=== PATIENT | female | born 1960 | race Two or more races ===

== ENCOUNTER → 2016-05-31 | Day surgery (SDC) | payer BC ==
[~2016-05-31] VITALS: Ht 162.6 cm; Wt 54.4 kg
[2016-05-31] VITALS (7 sets, daily range): BP systolic 107–119; BP diastolic 57–71
[~2016-05-31] MED LIST: NS Irrig 1000ml ONE; Propofol 10mg/ml 20ml IV ONE; [UNRECOGNIZED DRUG - REMARK] PO
--- NOTE | 2016-05-31 09:25 | Pre-Procedure Note/Attestation ---
Pre-Procedure Note/Attestation Complete Prior to Procedure Planned Procedure: not applicable Procedure Narrative: colonoscopy Indications for Procedure Pre-Operative Diagnosis: screening Attestation I attest that I discussed the nature of the procedure; its benefits; risks and complications; and alternatives (and the risks and benefits of such alternatives ), prior to the procedure, with the patient (or the patient's legal insurance representative). I attest that, if there was a reasonable possibility of needing a blood transfusion, the patient (or the patient's legal insurance representative) was given the [facility] standardized written summary, pursuant to the Navi Mullin Blood Safety Act ([place] Health and Safety Code # 1645, as amended). I attest that I re-evaluated the patient just prior to the surgery and that there has been no change in the patient's H&P, except as documented below: NAVA ESPANA May 31, 2016 09:25
--- NOTE | 2016-05-31 09:27 | Short Stay Surgery H&P ---
History of Present Illness History of Present Illness Chief Complaint screening HPI Naomy Nichole is a 55 year old female who was admitted on for Colon Screening Patient History Allergies: Coded Allergies: No Known Allergies (Unverified , 05/31/16) PAST MEDICAL HISTORY: (1) Mitral valve disorder Past Surgeries: Social History: Medication History Scheduled [Hormone Pill Otc], 1 TAB-CAP PO DAILY, (Reported) Review of Systems Cardiovascular: Reports: no symptoms Respiratory: Reports: no symptoms Skeletal: Reports: no symptoms Gastrointestinal: Reports: gastro esophageal reflux disease Genitourinary: Reports: no symptoms Neurologic: Reports: no symptoms Endocrine: Reports: no symptoms Hematologic: Reports: no symptoms Physical Exam Vital Signs Last Vital Signs Date Time Temp Pulse Resp B/P Pulse Ox O2 Delivery O2 Flow Rate FiO2 05/31/16 08:40 98.5 65 18 112/63 100 Room Air Skin: normal HENT: normal Heart: normal Lungs: normal Abdomen: normal Extremities: normal Plan Plan of Care colonoscopy Final Diagnosis: Attestation Are the patient's medical conditions optimized for surgery? Attestation Response: yes NAVA ESPANA May 31, 2016 09:27
--- NOTE | 2016-05-31 09:49 | Anethesia Preoperative Eval ---
Anesthesia Pre-op PMH/ROS General Date of Evaluation: May 31, 2016 Time of Evaluation: 09:23 Anesthesiologist: mike ASA Score: ASA 2 Mallampati Score Class I : Soft palate, uvula, fauces, pillars visible Class II: Soft palate, uvula, fauces visible Class III: Soft palate, base of uvula visible Class IV: Only hard plate visible Mallampati Classification: Class II Surgeon: ced Diagnosis: screening Surgical Procedure: colonoscopy Anesthesia History: none Allergies: Coded Allergies: No Known Allergies (Unverified , 05/31/16) Anesthesia Pre-op Phys. Exam Physician Exam Last Vital Signs Date Time Temp Pulse Resp B/P Pulse Ox O2 Delivery O2 Flow Rate FiO2 05/31/16 08:40 98.5 65 18 112/63 100 Room Air Airway Exam Mallampati Score: Class II Teeth: intact Anesthesia Pre-op A/P Risk Assessment & Plan Plan: propofol Status Change Before Surgery: Gustavo Hallman MD May 31, 2016 09:49
--- NOTE | 2016-05-31 09:49 | Endoscopy Procedure Note ---
Endoscopy Procedure Note Indication for Procedure: screening Procedures Performed: colonoscopy Operative Findings/Diagnosis: one polyp Specimen: yes Pt Tolerated Procedure Well: Yes Estimated Blood Loss: none Anesthesiologist: mike Anesthesia: MAC Implant(s) used?: No 50 yrs or older w/o bx or poly: No 10yrs. F/U not recommended: Yes If not recommended, why?: Above average risk 10 yrs. F/U needed: Yes 18 years or older w/prev. colo: No NAVA ESPANA May 31, 2016 09:49
--- NOTE | 2016-05-31 09:50 | Immediate Post-Op Evaluation ---
Immediate Post-Op Evalulation Immediate Post-Op Evalulation Date of Evaluation: May 31, 2016 Time of Evaluation: 10:08 IV Fluids: 300 Blood Pressure Systolic: 119 Blood Pressure Diastolic: 57 Pulse Rate: 80 Respiratory Rate: 15 O2 Sat by Pulse Oximetry: 98 Temperature (Fahrenheit): 96 Pain Score (1-10): 0 Nausea: No Vomiting: No Complications none Patient Status: awake, patent, none Hydration Status: adequate Gustavo Reyes MD May 31, 2016 09:50
--- NOTE | 2016-05-31 09:51 | 48 Hour Post Anesthesia Eval ---
Post Anesthesia Evaluation Date of Evaluation: May 31, 2016 Time of Evaluation: 10:30 Blood Pressure Systolic: 107 0: 66 Pulse Rate: 67 Respiratory Rate: 14 Temperature (Fahrenheit): 97.8 O2 Sat by Pulse Oximetry: 99 Airway: patent Nausea: No Vomiting: No Pain Intensity: 0 Hydration Status: adequate Cardiopulmonary Status: stable Mental Status/LOC: patient returned to baseline Follow-up Care/Observations: n/a Post-Anesthesia Complications: tolerated well Follow-up care needed: ready to discharge Gustavo Reyes MD May 31, 2016 09:51
--- NOTE | 2016-05-31 18:27 | Procedure Note ---
DATE OF PROCEDURE: 05/31/2016 SURGEON: Pablito Winters M.D. PROCEDURE: Colonoscopy with biopsy. ANESTHESIOLOGIST: Gustavo Reyes M.D. INSTRUMENT: Olympus adult flexible colonoscope. INDICATION: Screening colonoscopy. REASON FOR PROCEDURE: The procedure, risks, benefits, and possible consequences, including hemorrhage, aspiration, perforation and infection, and alternative treatments, were explained to the patient/legal guardian by Dr. Pablito Winters and the patient/legal guardian understood and accepted these risks. DESCRIPTION OF PROCEDURE: After informed consent was obtained and the patient was adequately sedated, first rectal exam was performed, which was normal. Then, the scope was advanced from the rectum into the cecum documented by appendiceal orifice, ileocecal valve, and right upper quadrant palpation. Quality of prep was very good. The patient had one diminutive polyp in the rectosigmoid area, which was removed with cold biopsy forceps technique. Otherwise, the rest of the examination was grossly within normal limits. Retroflexion of rectum showed evidence of internal hemorrhoids. SUMMARY OF FINDINGS: 1. One diminutive polyp in the rectosigmoid area, otherwise normal colonoscopy examination. 2. Small internal hemorrhoids. RECOMMENDATIONS: Follow up biopsies and treat accordingly. Pablito Winters M.D. DR: RIGOBERTO JOB#: [id number] CC:
--- NOTE | 2016-06-04 20:23 | Cardiology Report ---
APPROVED REPORT EKG Measurement Heart [id number] Normal sinus rhythm with sinus arrhythmia Normal ECG
== END | disposition home or self-care (01) ==
LOC: GAS 07:45 → EDSEX 10:15
DX: Z12.11 Encounter for screening for malignant neoplasm of colon (principal); D12.7 Benign neoplasm of rectosigmoid junction; K64.8 Other hemorrhoids; K21.9 Gastro-esophageal reflux disease without esophagitis
CPT/HCPCS: 93005; 94003; 94150